=== PATIENT | male | born 2000 | race American Indian/Alaskan Native ===

== ENCOUNTER 2021-11-13 21:00 | Emergency (ER) | payer OTHER ==
[2021-11-13] MEDS ORDERED: FLUORESCEIN 1 MG STRIP OP ONE (23:02)
[2021-11-13] MEDS ORDERED: TETRACAINE 0.5% OPHTH SOLN 4ML OU PRN (23:02)
--- NOTE | 2021-11-14 00:48 | Emergency Department Report ---
ED Eye Problem HPI - General Chief complaint: Eye Problems Stated complaint: RIGHT EYE PAIN Source: patient Mode of arrival: Stretcher Limitations: No Limitations - History of Present Illness Initial comments: Patient is a 21-year-old male with no past medical history who presents to the ED with complaint of right eye pain after the contact lens that he has been using got stuck in his right eye for the last 24 hours. Patient states that he has tried multiple times to remove the contact lens but unable to. Patient denies dizziness, syncope, vision loss, headache, fever, chills, nausea and vomiting, neck pain, chest pain or shortness of breath. MD chief complaint: eye pain (right eye pain), foreign body (right eye foreign body, contact lens stuck in the right eye) -: Sudden, hour(s) (24) Onset Description: gradual Location: right eye Place: home If Injury: none Eye Symptoms: redness, pain Severity: mild Severity scale (0 -10): 2 If Pain, Quality: aching Consistency: constant Associated Symptoms: none Treatments Prior to Arrival: none - Related Data Patient Tetanus UTD: Yes Previous Rx's Medication Instructions Recorded Last Taken Type Tobramycin 0.3% [Tobrex] 1 drop OP Q8HR #5 ml 11/14/21 Unknown Rx Allergies Allergy/AdvReac Type Severity Reaction Status Date / Time No Known Allergies Allergy Unverified 11/13/21 22:46 ED Review of Systems ROS: Stated complaint: RIGHT EYE PAIN Other details as noted in HPI Constitutional: denies: chills, fever Eyes: eye pain (right eye), other (contact lens stuck in right eye). denies: eye discharge, vision change ENT: denies: ear pain, throat pain Respiratory: denies: cough, shortness of breath, wheezing Cardiovascular: denies: chest pain, palpitations Endocrine: no symptoms reported Gastrointestinal: denies: abdominal pain, nausea, vomiting, diarrhea Genitourinary: denies: urgency, dysuria Musculoskeletal: denies: back pain, joint swelling, arthralgia Skin: denies: rash, lesions Neurological: denies: headache, weakness, paresthesias Psychiatric: denies: anxiety, depression Hematological/Lymphatic: denies: easy bleeding, easy bruising ED Past Medical Hx - Past Medical History Previous Medical History?: No - Surgical History Past Surgical History?: Yes Additional Surgical History: Right Forearm - Social History Smoking Status: Never Smoker Substance Use Type: None - Medications Home Medications: Home Medications Medication Instructions Recorded Confirmed Last Taken Type Tobramycin 0.3% [Tobrex] 1 drop OP Q8HR #5 ml 11/14/21 Unknown Rx ED Physical Exam - General Limitations: No Limitations General appearance: alert, in no apparent distress - Head Head exam: Present: atraumatic, normocephalic, normal inspection - Eye Eye exam: Present: normal appearance, PERRL, EOMI, other (contact lense identified in right eye and removed after fluorescein dye application) - ENT ENT exam: Present: normal exam, normal orophraynx, mucous membranes moist, TM's normal bilaterally, normal external ear exam - Neck Neck exam: Present: normal inspection, full ROM. Absent: tenderness - Respiratory Respiratory exam: Present: normal lung sounds bilaterally. Absent: respiratory distress, wheezes, rhonchi, stridor, chest wall tenderness, accessory muscle use, decreased breath sounds - Cardiovascular Cardiovascular Exam: Present: regular rate, normal rhythm, normal heart sounds. Absent: systolic murmur, diastolic murmur, rubs, gallop - GI/Abdominal GI/Abdominal exam: Present: soft, normal bowel sounds. Absent: tenderness, guarding, rebound, hyperactive bowel sounds, mass - Extremities Exam Extremities exam: Present: normal inspection, full ROM, normal capillary refill. Absent: tenderness - Back Exam Back exam: Present: normal inspection, full ROM. Absent: tenderness, CVA tenderness (R), CVA tenderness (L), muscle spasm, paraspinal tenderness, vertebral tenderness - Neurological Exam Neurological exam: Present: alert, oriented X3, CN II-XII intact, normal gait, reflexes normal - Psychiatric Psychiatric exam: Present: normal affect, normal mood - Skin Skin exam: Present: warm, dry, intact, normal color. Absent: rash ED Course Vital Signs 11/13/21 21:01 Temperature 98 F Pulse Rate 67 Respiratory 18 Rate Blood Pressure 128/77 O2 Sat by Pulse 99 Oximetry ED Medical Decision Making - Medical Decision Making This is a 21-year-old male with no past medical history who presents to the ED with complaint of right eye pain after the contact lens that he has been using got stuck in his right eye for the last 24 hours. Patient states that he has tried multiple times to remove the contact lens but unable to. In the ED, patient is alert and oriented x3 and is not in any distress. Patient right eye was irrigated with normal saline and tetracaine solution also used as a local anesthetic. Fluorescein dye was also applied and using Fletcher lamp, the contact Was Identified and Removed the patient's right eye. Patient tolerated procedure well. Patient was therefore discharged home and advised to follow-up with his primary care physician in 7 to 10 days for reevaluation. - Differential Diagnosis Right eye injury; foreign body in right eye; contact lens abrasion; Critical care attestation.: If time is entered above; I have spent that time in minutes in the direct care of this critically ill patient, excluding procedure time. ED Disposition Clinical Impression: Corneal abrasion due to contact lens Qualifiers: Laterality: right Qualified Code(s): H18.821 - Corneal disorder due to contact lens, right eye Right eye injury Qualifiers: Encounter type: initial encounter Qualified Code(s): S05.91XA - Unspecified injury of right eye and orbit, initial encounter Disposition: HOME / SELF CARE / HOMELESS Is pt being admited?: No Does the pt Need Aspirin: No Condition: Stable Instructions: Corneal Abrasion, [id number] Additional Instructions: Apply the medication as advised to the affected eye, follow-up with your primary care physician in 5 to 7 days for reevaluation. Return to the ED immediately if symptoms get worse. Prescriptions: Tobramycin 0.3% [Tobrex] 1 drop OP Q8HR #5 ml Referrals: PATRICIA SADLER MD [Primary Care Provider] - 3-5 Days Time of Disposition: 00:48 Print Language: LITHUANIAN
[2021-11-14 02:23] VITALS: BP 123/76
== END 2021-11-14 02:23 | disposition home or self-care (01) ==
LOC: ED 21:00
DX: S05.91XA Unspecified injury of right eye and orbit, initial encounter (principal); H18.821 Corneal disorder due to contact lens, right eye; X58.XXXA Exposure to other specified factors, initial encounter; Y93.89 Activity, other specified; Y92.89 Other specified places as the place of occurrence of the external cause; Y99.8 Other external cause status
CPT/HCPCS: 99283